=== PATIENT | female | born 1980 | race Hispanic/Latino ===

== ENCOUNTER 2017-04-27 14:22 | Observation (INO) | payer OTHER ==
[2017-04-27 15:36] LABS: Mean Corpuscular Hemoglobin 29.9 pg (27.0-35.0); Mean Corpuscular Volume 91.6 fL (81-100)
[2017-04-27 15:56] LABS: BASOPHILS % (AUTO) 0.3 % (0-3); EOSINOPHILS % (AUTO) 0.4 % (0-5); MONOCYTES % (AUTO) 6.9 % (4-12); NEUTROPHILS % (AUTO) 77.9 % (40-74)
[2017-04-27] MEDS ORDERED: Magnesium Sulfate 4 Gm/100 mL Water Premix IV ONE (16:46)
[2017-04-27] MEDS ORDERED: Magnesium Sulfate 20 Gm/500 mL Water Premix IV ONE (16:46)
[2017-04-27] MEDS ORDERED: Magnesium Sulf 4 Gm/100 mL H2O 4 GM in IV Premix 1 EACH IV ONE (16:50)
[2017-04-27] MEDS ORDERED: Magnesium Sulf 20 Gm/500mL H2O 20 GM in IV Premix 1 EACH IV SCH (16:50)
[2017-04-27] MEDS ORDERED: Labetalol 5 mg/mL 20 mL Inj ONE (17:00)
--- NOTE | 2017-04-27 17:05 | DRSVH ---
PROCEDURE: US OB PLACENTA EVALUATION LIMITED INDICATIONS: PLACENTA PRESENTATION OUTSIDE/PRIOR DATING DATA: Last menstrual period (LMP): Unknown LMP-based estimated date of delivery (GEORGE): Unknown. First dating scan (date and location): 10/27/16. Estimated date of delivery (GEORGE) from first dating scan: 04/28/17. TECHNIQUE: Real-time scanning was performed of the fetus, with image documentation and biometric measurements. COMPARISON: None. FINDINGS: General: A single living intrauterine gestation is present. Presentation: Breech. Placenta: Placental position is anterior, without previa. OB-[employer] WORK[employer] Ultrasound Procedure Report Summary Fetus Summary Estimated Gestational Age from first dating scan: 39 weeks, 6 days Heart Rate: 143 bpm Findings(Amniotic Sac) Amniotic Fluid Index: 17.90 cm Other: Not applicable. IMPRESSION: 1. Single living intrauterine gestation redemonstrated and amniotic fluid index is normal measuring 1 7.9 cm. No additional imaging of the fetus was performed. Dictated by: Anson IRELAND Interpreted: Giselle Arcos MD on 04/27/2017 at 17:01 Approved by: Giselle Arcos M.D. on 04/27/2017 at 17:03
[2017-04-27] MEDS ORDERED: Lactated Ringer's 1,000 ML IV PRN (17:09)
[2017-04-27] MEDS ORDERED: Carboprost 250 mCg/mL Inj IM PRN (17:10)
[2017-04-27] MEDS ORDERED: Oxytocin 10 Unit/mL Inj IM PRN (17:10)
[2017-04-27] MEDS ORDERED: Hemorrhage Kit, Post Partum XX ONE (17:10)
[2017-04-27] MEDS ORDERED: Oxytocin 30 Units/500 mL LR 30 UNITS in IV Premix 1 EACH IV PRN (17:10)
[2017-04-27] MEDS ORDERED: Labetalol 5 mg/mL 4 mL Inj IV PRN (17:10)
[2017-04-27] MEDS ORDERED: Methylergonovine 0.2 mg/mL Inj IM PRN (17:10)
[2017-04-27] MEDS ORDERED: Sodium Chloride LOK Flush 10 mL Syringe IVFLUSH PRN (17:10)
[2017-04-27] MEDS ORDERED: Calcium GLUCOnate 10% (Gm) 1 Gm/10 mL Inj ONE (17:32)
[2017-04-27] MEDS ORDERED: Lidocaine 2% 5 mL Urojet Topical Jelly Syringe ONE (17:52)
[2017-04-27 18:26] LABS: APPEARANCE,URINE CLEAR (CLEAR,HAZY); COLOR,URINE YELLOW (YELLOW); PH,URINE 6.5 (5.0-8.0)
[2017-04-27 18:27] LABS: OCCULT BLOOD,URINE MODERATE (NEGATIVE); UROBILINOGEN,URINE NORMAL (NORMAL)
[2017-04-27] MEDS ORDERED: Penicillin G K 5,000,000 Units Inj ONE (19:31)
[2017-04-27] MEDS ORDERED: 0.9% Sodium Chloride 50 ML IV ONE (19:32)
[2017-04-27] MEDS ORDERED: Penicillin G K Inj 5,000,000 UNITS in Dextrose 5% Minibag Plus 100 ML IV ONE (19:40)
--- NOTE | 2017-04-27 19:47 | HP ---
[address] [address] HISTORY AND PHYSICAL PATIENT: LISA DIEHL : 1980 MR#: [id number] ADMIT: 04/27/2017 JOB ID: [id number] DATE OF ADMISSION: 04/27/2017 HISTORY OF PRESENT ILLNESS: This patient is a 36-year-old, 6, para 3-2-0-5 at 39 weeks and 6 days by 14 week ultrasound, presents to Labor and Delivery with complaints of vaginal spotting and spontaneous rupture of membranes. She reports leaking of fluid yesterday at late evening but reports gush of fluid since 2 p.m. today. The patient has had limited care. She has been seen initially in [facility] on November 25, 2016 were basic labs were done and the last visit to the clinic was at 24 weeks and five days on January 11, 2017. The patient has a history of methamphetamine and heroin use. She is on methadone program. Urine toxicology screen was positive for methamphetamines and methadone. PAST OBSTETRICAL HISTORY: She has a history of gastroschisis in one of her pregnancies and history of preeclampsia at 34 weeks with her last . All her prior five deliveries were spontaneous vaginal deliveries; three of them term; two . LABS: Available were reviewed. She is blood group and type O positive. Varicella nonimmune. Group B strep culture is unknown. PHYSICAL EXAMINATION: Vital signs: Blood pressure 180/100, temperature 36.7, pulse 80, respiratory rate 18. Today's weight 249 pounds, height 154.9 cm. The patient's weight one month ago was 200 pounds. HEENT: PERRLA. Moist mucosa. Vision slightly blurred. Chest: Clear bilaterally with good respiratory effort. Cardiovascular: Regular rate and rhythm. Abdomen is swollen up to the level of the xiphoid. It is nontender. It is difficult to determine presentation because of swelling. Vaginal examination: There is clear amniotic fluid. Amnisure test is positive. The cervix is closed. Extremities: 3+ pitting edema bilaterally. Neuro exam: DTRs 3+ bilaterally. General exam: The patient is awake, alert, oriented x3. Complaining of generalized headache. heart rate tracing is reactive, category one. Baseline 130 beats per minute. No decelerations. No contractions on the monitor. ASSESSMENT AND PLAN: This patient is a 36-year-old, 6, para 5, at 39 weeks and 6 days with limited care, substance abuse, obesity, preeclampsia with severe features. Being admitted to Labor and Delivery. Labetalol protocol is started for blood pressure control. Magnesium sulfate is started 4 g bolus followed by 2 g/hour IV piggyback. Penicillin is being started because of unknown group B strep status and membranes ruptured. The labs are being sent for preeclampsia including CBC with differential, CMP, LDH, random protein, protein creatinine ratio. The ultrasound is ordered to estimate amniotic fluid volume presentation, placenta, etc. since performing Lenny maneuver is difficult because of generalized swelling and presenting part cannot be identified.
--- NOTE | 2017-04-28 04:59 | DIS ---
[address] [address] DISCHARGE SUMMARY PATIENT: LISA DIEHL : 1980 MR#: [id number] ADMIT: 04/27/2017 JOB ID: [id number] DIS: 04/27/2017 DISCHARGE SUMMARY/TRANSFER NOTE: DATE OF ADMISSION: 04/27/2017 DATE OF TRANSFER: 04/27/2017 ADMITTING DIAGNOSIS: A 36-year-old, 6, para 5, at 39 weeks and 6 days, spontaneous rupture of membranes and preeclampsia. DISCHARGE TRANSFER DIAGNOSIS: A 36-year-old, 6, para 5, spontaneous rupture of membranes at term breech presentation. Preeclampsia with severe features. HOSPITAL COURSE: The patient is a 36-year-old, 6, para 5, at 39 weeks and 3 days by a 14 week ultrasound. Limited care. Substance abuse including methamphetamine and heroin. Currently in methadone program,was admitted to Labor and Delivery when she presented with complaint of vaginal spotting and spontaneous rupture of membranes with aggressive fluid noticed at around 2 p.m. The patient has generalized swelling over the lower part of her body including extremities and lower part of the abdomen. She had limited care, was seen in [facility] only three times, the last time in December at 24 weeks. The patient has history of preeclampsia at 34 weeks in her prior and history of gastroschisis in one of her prior pregnancies. Upon admission, the patient's blood pressure was 180/100. Labetalol protocol was started and it was brought down to 156/90. heart rate tracing is reactive, category one. No decelerations. The patient was started with magnesium sulfate and penicillin was given for group B strep prophylaxis. She is group and type O positive, rubella immune, group B strep status unknown well. PHYSICAL EXAMINATION: VITAL SIGNS: Blood pressure 156/90, respiratory rate 17, pulse 80, temperature 36.6. Today's BMI 47.2. HEENT: PERRLA. CHEST: Good respiratory effort bilaterally. CARDIOVASCULAR SYSTEM: Regular rate and rhythm. ABDOMEN: Swollen up to the sternum. EXTREMITIES: 3+ pitting edema. NEUROLOGICAL EXAM: DTRs 3+ bilaterally without clonus. PELVIC EXAM: The cervix is closed. There is clear amniotic fluid. The ultrasound was done and verified breech presentation with amniotic fluid level of 17 cm and anterior location of the placenta. No previa, no overlying placenta. LABORATORIES: WBC count 10.1, hemoglobin 12.1, hematocrit 37.1, platelets 147. Comprehensive metabolic panel shows sodium 138, potassium 4.2, BUN 19 mg/dL. Creatinine 1.36 mg/dL. Random protein 410. ASSESSMENT/PLAN: The patient is a 36-year-old, 6, para 5, with preeclampsia with severe features, obesity, poor care, substance use, spontaneous rupture of membranes at term. The patient's labs show elevated creatinine at 1.36. She received magnesium at admission as well as labetalol was used to control her blood pressure. Penicillin was started. Group B strep status is unknown. The patient currently is hemodynamically stable and suitable for transfer. She is being transferred to [facility]. Accepting physician, Paula Felipe M.D. .
== END 2017-04-27 19:44 | disposition short-term general hospital (02) ==
LOC: FBCO 14:22 → FBC 15:35
PROVIDERS: ADMIT Obstetrics & Gynecology; ATTEND Legal Medicine
DX: O14.13 Severe pre-eclampsia, third trimester (principal); O32.1XX0 Maternal care for breech presentation, not applicable or unspecified; O42.92 Full-term premature rupture of membranes, unspecified as to length of time between rupture and onset of labor; O99.323 Drug use complicating pregnancy, third trimester; F11.20 Opioid dependence, uncomplicated; O99.213 Obesity complicating pregnancy, third trimester; E66.9 Obesity, unspecified; O09.33 Supervision of pregnancy with insufficient antenatal care, third trimester; Z3A.39 39 weeks gestation of pregnancy
CPT/HCPCS: 36415; 76815; 80053; 81001; 82565; 82570; 83615; 84112; 84156; 84450; 84460; 84520; 84550; 85027; 96374; 96375; G0378; G0463; G0480; J3475

== ENCOUNTER 2017-05-04 11:35 | Inpatient (IN) | payer OTHER ==
[2017-05-04] VITALS (13 sets, daily range): BP systolic 119–141; BP diastolic 57–86; PULSE 70–81; RESP 15–18; O2SAT 96–99
[~2017-05-04] VITALS: Ht 154.9 cm; Wt 104.0 kg
[2017-05-04 12:10] LABS: BASOPHILS % (AUTO) 0.1 % (0-3); EOSINOPHILS % (AUTO) 0.7 % (0-5); MONOCYTES % (AUTO) 7.7 % (4-12); Mean Corpuscular Hemoglobin 30.7 pg (27.0-35.0); Mean Corpuscular Volume 99.1 fL (81-100); NEUTROPHILS % (AUTO) 77.7 % (40-74); Platelet Count 239 bil/L (150-400)
[2017-05-04 13:11] LABS: APPEARANCE,URINE HAZY (CLEAR,HAZY); COLOR,URINE YELLOW (YELLOW); OCCULT BLOOD,URINE MODERATE (NEGATIVE); UROBILINOGEN,URINE NORMAL (NORMAL)
[2017-05-04] MEDS ORDERED: Magnesium Sulfate 4 Gm/100 mL Water Premix IV ONE (14:06)
[2017-05-04] MEDS ORDERED: LABE200T PO (14:16)
[2017-05-04] MEDS ORDERED: OXYC5TAB72 PO (14:16)
[2017-05-04] MEDS ORDERED: IBUP-1827 PO (14:16)
[2017-05-04] MEDS ORDERED: PNV1TABL82 PO (14:16)
[2017-05-04] MEDS ORDERED: FERR-83 PO (14:16)
[2017-05-04] MEDS ORDERED: DOCU-41 PO (14:16)
[2017-05-04] MEDS ORDERED: METH10OR11 PO (14:17)
--- NOTE | 2017-05-04 14:45 | NUR ---
Admit nurse note Admission assessment completed. Report given to receiving RN. Pt. denies pain aside from irritation from IV insertion. She states she has adequate support from her at home. Per pt. she was referred here by doctor after a routine bp check during staple removal revealed elevated bp. Pt. has hx preeclampsia and is x 1 week. She is . States she takes methadone at the clinic in [place] and had her dose at 0700 today.
[2017-05-04] MEDS ORDERED: Magnesium Sulfate 20 Gm/500 mL Water Premix IV ONE (14:53)
[2017-05-04] MEDS ORDERED: Lidocaine 2% 6mL Topical Jelly ONE (15:21)
[2017-05-04] MEDS ORDERED: Magnesium Sulf 4 Gm/100 mL H2O 4 GM in IV Premix 1 EACH IV ONE (15:45)
[2017-05-04] MEDS ORDERED: Labetalol 5 mg/mL 4 mL Inj IV PRN (15:45)
--- NOTE | 2017-05-04 16:00 | NUR ---
Shift Note: 4 gram bolus of MgSO4 started at 1445. DTRs 2+, edema 3+ and weeping in upper and lower extremities as well as in her lower abdomen, no clonus present, pt states she has a headache, blurry vision, sees flashes of light and spots. Talked with Dr Lopez at approx 1500, hourly bps, assess closely, clear liquid diet. SCDs placed on patient as well as clark catheter. Pt on bedrest, FOB at bedside helping support pt. Pt has a max of 125 cc/hr of fluid, q6hour labs to monitor pt closely Addendum: 05/04/17 at 1928 by ASHELY JIN RN Pt's BPs stable, adequate UOP, pt on bedrest. Mg infusing at 2 grams/hour. Updated Dr Lopez on pt's status. No pain at this time. Pt resting comfortably in bed. Reported off to Kimberlyn Paz RN, and is now assuming pt's care.
[2017-05-04] MEDS: Magnesium Sulf 20 Gm/500mL H2O 20 GM in IV Premix 1 EACH IV SCH (17:41)
[2017-05-04] MEDS: Lactated Ringer's 1,000 ML IV SCH (18:29)
[2017-05-04 20:10] LABS: Mean Corpuscular Hemoglobin 30.5 pg (27.0-35.0); Mean Corpuscular Volume 99.1 fL (81-100)
--- NOTE | 2017-05-04 20:20 | NUR ---
critical lab value Dr. Lopez notified of critical lab value- hgb of 6.8
--- NOTE | 2017-05-04 20:46 | HP ---
[address] [address] HISTORY AND PHYSICAL PATIENT: LISA DIEHL : 1980 MR#: [id number] ADMIT: 05/04/2017 JOB ID: [id number] DATE: 05/04/2017 HISTORY OF PRESENT ILLNESS: This is a 36-year-old female. She is currently 6, para 4-2-0-6. She was seen today by Dr. Orozco in the office for postop for staple removal and noticed to have high blood pressure and headache, blurry vision, and she was sent in for further evaluation. This patient had scanty care with us between 18 weeks and 24 weeks and then loss of contact afterwards. She presented to [facility] April 27 for labor and she was noticed having severe preeclampsia and breech presentation with BMI 47. She was transferred down to [facility] for further care. There, she had a section. She was sent home three days after the procedure. Looking at the notes from [facility], the procedure was not complicated. She had EBL 800 cc. It was noticed the patient was sent home with antihypertensive medication labetalol 200 t.i.d. When she presented for the care at [facility], she was noticed to have stage [address] Orozco's note. She had the similar edema which she presented to [facility] today. She also feels on and off headache. She feels blurry vision. No floaters to her eyes. No epigastric pain. She does not have significant vaginal bleeding. She tolerated her diet. No diarrhea. No nausea, vomiting. When the patient was evaluated at [facility], she had slightly elevated blood pressure to normal blood pressure, and she was noticed to have significant edema. LABORATORIES: Showed she has significant anemia with hemoglobin 6.7 with normal platelet count. Her creatinine 1.1 and her uric acid 7.6. AST, ALT normal. ALLERGIES: Patient has no known drug allergies. PAST MEDICAL HISTORY: Patient has history of drug abuse with heroin and meth, and she was placed on methadone program. She has a history of tobacco use. PAST SURGICAL HISTORY: section. OBSTETRICAL HISTORY: She is 6, para 3-2-0-6 now. GYNECOLOGIC HISTORY: Not significant. SOCIAL HISTORY: As mentioned above, she is a chronic smoker, smoking during , and a history of drug abuse with meth and heroin. Currently on methadone program. PHYSICAL EXAMINATION: VITAL SIGNS: Blood pressure at office 150s/90s. At triage, her blood pressure was in mild elevated range. CARDIAC: RR, no murmur. PULMONARY: Bilaterally clear. Edema on both of her legs. ABDOMEN: Also swollen with pantus. Otherwise, her upper abdomen soft. No edema. Difficult to evaluate her uterine fundus level due to obesity, but very minimal lochia. EXTREMITIES: Nontender bilaterally. Edema bilaterally. DTRs normal. LABORATORY: H and H is 6.5/21, platelet count 239. Creatinine 1.17. Uric acid 7.6, LDH 501. Her urine drug screening is only positive for methadone. ASSESSMENT AND PLAN: This is a 36-year-old female, para 6. This is a six days after section, severe preeclampsia with symptoms of headache and blurry vision, and still abnormal labs with elevated creatinine. PLAN: 1. We will admit her to [facility]. 2. We will monitor her blood pressure change and signs of symptoms of preeclampsia. 3. I will start her on magnesium, planned for 24 hours. 4. Her blood pressure should be in normal range. No plan to put her on antihypertensive medication at this time. 5. During her magnesium, we are going to place the urine catheter to monitor her urine output, especially when she has elevated creatinine. 6. At this time, I will do every 6 hours of preeclampsia labs. When stable, we will decrease to every 24 hours. 7. At this time, I have no plan to give her Lasix. We will watch her urine output and how her symptoms go. 8. We will place SCDs and will encourage the patient to turn by herself on bed. When she is sleeping, we will remind her to turn every [address] will place her back to methadone and put her on nicotine patch. MTDD
[2017-05-05] VITALS (17 sets, daily range): BP systolic 119–145; BP diastolic 51–85; PULSE 66–85; RESP 15–20; O2SAT 94–98
--- NOTE | 2017-05-05 06:37 | NUR ---
Pt reported feeling pressure in chest that has been going all day and night, difficult to take deep breath. VSS, lung sounds WNL. Loud murmur heard. Dr. Lopez was notified, orders for CXR and echocardiogram.
[2017-05-05] MEDS: Magnesium Sulf 20 Gm/500mL H2O 20 GM in IV Premix 1 EACH IV SCH ×2 (06:49→13:28)
--- NOTE | 2017-05-05 07:17 | PCM.PNOBPP ---
Subjective Date of Service May 05, 2017 Visit History This is a 36-year-old woman that delivered via at term for preeclampsia in [place]. Patient was sent home on by mouth labetalol 200 mg 3 times a day complicated by spotty care, morbid obesity with BMI 47, methadone treatment, preeclampsia. Patient presented to women's health clinic on 04 May for and incision check and staple removal and was found to be hypertensive with a blood pressure of 154/90 and lower extremity edema extending to the abdomen, headache and blurred vision. Patient was admitted to [facility], labs were drawn, patient was found to be anemic, low platelets, and LDH of 501, protein creatinine ratio of 1.51. Patient was started on IV magnesium, and a Kenny was placed. Patient has been free of any seizures. Subjective Patient complains of blurred vision, and lower extremity swelling, some mild cramping and bleeding, but denies headaches. Lochia: Light Labs 05/04/17 11:55: Neutrophils (%) (Auto) 77.7, Lymphocytes (%) (Auto) 11.6, Monocytes (%) (Auto) 7.7, Eosinophils (%) (Auto) 0.7, Basophils (%) (Auto) 0.1, Hematology Comments 05/04/17 19:58: White Blood Count 6.8, Red Blood Count 2.23, Hemoglobin 6.8, Hematocrit 22.1, Mean Corpuscular Volume 99.1, Mean Corpuscular Hemoglobin 30.5, Mean Corpuscular Hemoglobin Concent 30.8, Red Cell Distribution Width 15.6, Platelet Count 230 Exam Vital Signs Vital Signs Vital Signs Date Time Temp Pulse Resp B/P Pulse Ox O2 Delivery O2 Flow Rate FiO2 05/05/17 05:00 36.2 78 18 127/65 97 Room Air 05/05/17 02:30 36.4 72 15 126/57 97 Room Air 05/05/17 01:30 36.1 72 16 124/51 97 Room Air 05/05/17 00:30 36.3 73 15 126/58 96 Room Air 05/04/17 23:30 36.5 79 17 128/57 96 Room Air Vital Signs: VS reviewed, stable Exam Abdomen: Other (tender and edematous) : Kenny catheter Extremities: Edema 2+ Lungs: Clear to Auscultation, Normal Air Movement Heart: Exam Unremarkable, Regular Rate/Rhythm, No Murmurs/Rubs/Gallops General: Alert, Oriented X3, Cooperative, No Acute Distress OB Post Assessment/Plan Assessment Status post -Monitor for signs of complication post procedure Severe preeclampsia -Continue magnesium infusion until 24 hours has elapsed, then observe for rebound hypertension -Continue to monitor renal function VTE Mechanical Devices: Intermittant Pneumatic CD Attending Statement Patient seen and examined today- doing well. On magnesium. BP are now majority 120-130's/80's. Mild PAEZ, no vision changes or RUQ pain currently. Cr improved to 1.0 this AM down from 1.1 prior. On exam lungs are clear she has 2- 3+ pitting LE edema. 2+DTR, no clonus, good diuresis overnight. Overall responding well to magnesium. She does have severe anemia at 6.6 but is overall stable and was admitted at this level- will continue with iron and colace. Will continue magnesium until 24 hrs pp and discontinue this afternoon - then d/c home tomorrow if BP are stable overnight. Dre Virgen DO May 05, 2017 07:17 Krupa Buchanan MD May 06, 2017 00:36
[2017-05-05] MEDS: Lactated Ringer's 1,000 ML IV SCH ×2 (07:35→20:26)
--- NOTE | 2017-05-05 07:38 | DRSVH ---
PROCEDURE: X-RAY CHEST ONE VIEW, PORTABLE ([id number]) INDICATIONS: CHEST TIGHTNESS TECHNIQUE: One view of the chest was acquired. COMPARISON: None. FINDINGS: Surgical changes and devices: None. Lungs and pleura: No pleural effusions or pneumothorax. Lungs are clear. Mediastinum: Mediastinal contours appear normal. Heart size is normal. Bones and chest wall: No suspicious bony lesions. Overlying soft tissues appear unremarkable. IMPRESSION: No acute or active disease. Cause of chest tightness is not identified. Dictated by: Saul Vizcarra M.D. on 05/05/2017 at 7:35 Approved by: Saul Vizcarra M.D. on 05/05/2017 at 7:36
--- NOTE | 2017-05-05 07:50 | NUR ---
Case Management: Clarification of patient status: inpatient per MD order on 05/05/17. Brie Rowland RN
[2017-05-05] MEDS: Methadone 10 mg/mL 30 mL Oral Concentration PO SCH (08:11)
--- NOTE | 2017-05-05 08:20 | NUR ---
Shift note Pt resting in room with 2g maintenance dose of MGSO4 running. A&Ox4 on assessments, easily arousable when sleeping. Lungs sound clear, PAEZ on and off this shift. Pt denies any visual changes. No clonus. DTRs 2+. All BPs WNL this shift. Severe pitting edema from toes up to mid abdomen. Dr. Lopez notified of pt status, declines Lasix and daily wts while pt is on MGSO4 with bedrest. Pericare done by this RN with pad and linen change. Turning pt every 2 hours if she doesn't turn independently. SCDs on and running. Kenny draining lots of clear urine. Dr. Lopez updated of large amount of urine output this shift. Order received for pts home dose of methodone 85mg and a nicotine patch, pt declines patch so far.
--- NOTE | 2017-05-05 10:05 | NUR ---
Shift Note Discussed with pt that needs to care for baby at this time, as unsafe for her to care for babe by herself due to medication and bedrest. Pt verbalizes understanding but upset as states "I didn't know about any of this before". Report from NOC RN was that pt and had been educated about safe care for babe and that MOB could not care for babe by herself at this time. Asked if this RN could help clarify or answer any questions, pt states doesn't want to talk about it anymore feeling overwhelmed.
[2017-05-05 14:31] LABS: Mean Corpuscular Hemoglobin 30.6 pg (27.0-35.0); Mean Corpuscular Volume 98.6 fL (81-100)
--- NOTE | 2017-05-05 15:53 | NUR ---
Spoke with pt. about her goals for feeding her baby. She had been scheduled for an outpatient consultation for yesterday but was too ill and was admitted to [facility]. She cried and said she's worried her baby is too used to the bottle. She said she had latched the baby earlier today. We talked about the possibility of pumping once she is able to get up and care for herself. Reassured her that she is getting better and that she has done the appropriate thing to feed her baby formula when she can't manage her care. Talked with her nurse about setting up a breast pump when it is appropriate for her.
--- NOTE | 2017-05-05 15:59 | NUR ---
Shift Note BP's running mostly 120's-130's/60-70's. Urine output has been no less than 200 ml per hour. Continues with 3+ pitting edema, however skin is softer to touch not as firm. Pt states she can bend her legs and flex her toes and feet now which she was not able to do before. Continue with SCD's. Telephoned Dr. Buchanan with critical lab value hgb 6.6, stable for this patient and patient is asymptomatic. Also notified of magnesium 7.2. Orders to discontinue magnesium sulfate infusion, continue to monitor BP.
--- NOTE | 2017-05-05 18:13 | NUR ---
Shift Note Stood at bedside marched in place, tolerated well. Orders received, discontinued clark catheter, advanced to general diet, may have BRP. Continue with SCD's for now. Discussed with patient and SO to call for RN prior to getting up for the first time, verbalizes understanding. Continue to monitor.
--- NOTE | 2017-05-05 19:33 | PCM.DIGYN ---
Surgical Discharge Instruction Dates of Hospitalization Date of Hospital Admission May 04, 2017 at 11:35 Providers Admitting Physician: Austin Orozco MD Primary Care Physician: Zuly Attending Physician: Austin Orozco MD Diet Discharge Diet: No restrictions Activity Discharge Activity-General: No lifting >10 pounds for 4-6 weeks, No driving while taking narcotic Dressing and Incisional Care Hygiene: May shower, NO bathtub, hot tub or whirlpool Additional Instructions Discharge Instructions Please call with worsening severe pain, temperature >100.5, heavy vaginal bleeding or malodorous vaginal discharge. Symptoms of severe blood pressure include headache not relieved with tylenol or pain relievers, visual changes or severe right upper quadrant pain. Follow Up Plan Follow-up appointment: Weeks (1) Call your provider for: Fever, Chills, Shortness of breath, Heavy vaginal bleeding Krupa Buchanan MD May 05, 2017 19:33
[2017-05-06] VITALS (8 sets, daily range): BP systolic 129–145; BP diastolic 55–70; PULSE 73–82; RESP 16–18; O2SAT 97
--- NOTE | 2017-05-06 04:52 | NUR ---
shift note Voiding spontaneously post clark, states mild discomfort from catheter, output meeting normal limits. Generalized pitting edema, notably to bilateral lower extremities and abdomen. BP's stable 120-130's/50-70's, denies dizziness, headache, or weakness. Independent at this time to bathroom, instructed to call RN if symptoms appear. Attempting to feed babe at breast and pump intermittently. Denies pain throughout shift. SCD's on while in bed.
[2017-05-06 08:01] LABS: Mean Corpuscular Hemoglobin 30.8 pg (27.0-35.0); Mean Corpuscular Volume 98.2 fL (81-100)
--- NOTE | 2017-05-06 08:27 | NUR ---
Critical values Labs read to Dr Cross this am. Hbg 6.8 (up from 6.5) and Ca 6.3 both critical. MD requesting orthostatic BP's be done. MD aware pt is not symptomatic anymore with these lab values and wishes to be discharged early so that she may get to the methadone clinic this morning to get dose methadone for the weekend. Primary RN updated with labs and md request to do BP's - pt currently showering.
[2017-05-06] MEDS: Methadone 10 mg/mL 30 mL Oral Concentration PO SCH (09:35)
--- NOTE | 2017-05-06 09:41 | PCM.DIOB ---
Obstetrical Disch Instruction Date of Service: May 06, 2017 Dates of Hospitalization Date of Hospital Admission May 04, 2017 at 11:35 Providers Admitting Physician: Austin Orozco MD Primary Care Physician: Nopcp Attending Physician: Austin Orozco MD Discharge Diagnosis Discharge Diagnosis postop day # 8 S/P PCD at [facility]. Severe asymptomatic anemia. Preeclampsia with severe features (resolving). Problems: Diet Discharge Diet: No restrictions Activity Discharge Activity-General: Pelvic Rest for 6 weeks, No lifting >10 pounds for 4-6 weeks Dressing and Incisional Care Dressing Care: Keep dressing clean, dry & intact Hygiene: May shower Follow Up Plan Follow-up Provider (F9): Austin Orozco MD Follow-up appointment: Weeks (1) Call your provider for: Fever or Chills, Shortness of breath, Heavy vaginal bleeding, Other (excessive pain not controlled with pain medications, chest pain , severe headache, visual symptoms.) Geovanni Cross MD May 06, 2017 09:41
[2017-05-06] MEDS ORDERED: ASCO500C6 PO (09:43)
--- NOTE | 2017-05-06 09:56 | NUR ---
Shift Note Dr. Cross in to discharge patient. Orthostatic blood pressures per Dr. Cross wnl. SL removed. Up independently in room and to BR. Declines need for pain medicine. Did receive daily dose of methadone prior to discharge. Discharge instructions given and reviewed with patient and support person, verbalizes understanding, all questions answered.
--- NOTE | 2017-05-06 11:20 | DIS ---
[address] [address] DISCHARGE SUMMARY PATIENT: LISA DIEHL : 1980 MR#: [id number] ADMIT: 05/04/2017 JOB ID: [id number] DIS: 05/06/2017 ADMISSION DIAGNOSIS: Re-admit from [facility] postop day #6 status post primary and preeclampsia with severe chills with elevated blood pressures in the office. DISCHARGE DIAGNOSIS: 1. Postoperative day #8 status post primary section for breech presentation at term. 2. Preeclampsia with severe features. 3. Severe anemia, asymptomatic. For full details, please refer to the fully dictated notes. The patient received 24 hour magnesium sulfate for seizure prophylaxis and elevated blood pressures, and for the last 18 hours she had been off magnesium sulfate and off labetalol and her blood pressures have been within acceptable ranges. Vital signs at time of discharge 133/60 for blood pressure. Respirations are 16. Pulse is 80. Temperature 36.6 degrees centigrade. Heart is regular rate and rhythm. Positive S1, S2. Lungs clear to auscultation bilaterally. Abdomen: Appropriate tenderness around the incision. Incision is clean, dry and intact with swelling of the tissues around the incision, mostly edema. There is no redness and no tenderness in the tissues around. Could not palpate the uterine fundus at that point mostly due to swollen abdominal wall. Perineum: No active bleeding. Lower extremities: No calf tenderness appreciated bilaterally. 2+ pitting edema up to knees bilaterally. Deep tendon reflexes are 2+ upper, 2+ lower. No clonus. No right upper quadrant tenderness. Lungs are clear to auscultation, upper and lower zones. LABORATORIES: This morning, H and H is 6.8 and 21.7. Was 6.6 and 21.3 yesterday. Platelets are 266. White blood count is 6. Sodium 143, potassium 4.2, chloride 105, carbon dioxide 26, BUN is 12, creatinine is 1.02. Glucose 122. Magnesium was 7.2 yesterday. Calcium today was 6.3, mostly due to the very high magnesium of yesterday. Orthostatics were negative. Anemia is asymptomatic. DISCHARGE PLAN: The patient will be discharged home in stable condition. Will followup with Dr. Orozco in the office in one week. Instructed to have nothing in the vagina for six weeks. No heavy lifting more than baby's weight. Instructed to call for fever, chills, severe abdominal pain, uncontrolled pain with medication, heavy vaginal bleeding, abnormal wound discharge, headache, visual symptoms, chest pain, shortness of breath, right upper quadrant abdominal pain, leg pain. She was also instructed to followup with her methadone clinic for her daily methadone dose secondary to history of narcotic abuse in the past. The patient will be discharged home with the following medications: 1. Continue ferrous sulfate 325 mg twice daily. 2. Ibuprofen 600 mg every 6 hours. 3. Methadone 85 mg daily to be dispensed by the methadone clinic. 4. Oxycodone 5 mg every 4 hours as needed for severe pain. 5. vitamins once daily. 6. Colace 100 mg twice daily. 7. Vitamin C 500 mg twice daily was added to be combined with iron tablets. The patient was instructed to stop the labetalol as she did not get any labetalol in the hospital and her blood pressures were still within acceptable range. All the above was discussed in detail with the patient who agreed to the plan.
== END 2017-05-06 10:00 | disposition home or self-care (01) | DRG 776 ==
LOC: FBC 11:35 → OBSVTOIN 11:35 → FBC 14:05
PROVIDERS: ADMIT Legal Medicine; ATTEND Legal Medicine
PROC: 3E033GC Introduction of Other Therapeutic Substance into Peripheral Vein, Percutaneous Approach (ICD-10-PCS; principal; 2017-05-04)
DX: O14.15 Severe pre-eclampsia, complicating the puerperium (principal); Z68.41 Body mass index [BMI] 40.0-44.9, adult; O99.325 Drug use complicating the puerperium; O90.81 Anemia of the puerperium; O99.215 Obesity complicating the puerperium; E66.9 Obesity, unspecified; F17.200 Nicotine dependence, unspecified, uncomplicated; O99.335 Smoking (tobacco) complicating the puerperium; F11.99 Opioid use, unspecified with unspecified opioid-induced disorder